=== PATIENT | female | born 1970 | race Caucasian/White ===

== ENCOUNTER 2019-05-26 20:42 | Emergency (ER) | payer OTHER ==
[~2019-05-26] VITALS: Ht 167.6 cm; Wt 111.1 kg
[~2019-05-26 20:42] MED LIST: ACET325 PO; Amitriptyline H25 MG PO; CYCL10 PO; Crutch1 EACH MISC; FLUT110OIA; IBUP800 PO; LEVFLO500 PO; LOSA25 PO; METO25ER PO; PRED20 PO; SUMA25 PO; VENL25 PO; Ventolin Soln3 ML INH
[2019-05-26] MEDS ORDERED: CYCL10 PO (23:31)
[2019-05-26] MEDS ORDERED: LIDO700A20 TOP (23:31)
[2019-05-26] MEDS ORDERED: IBUP600 PO (23:31)
== END 2019-05-27 00:30 | disposition home or self-care (01) ==
LOC: ER 20:42
DX: S16.1XXA Strain of muscle, fascia and tendon at neck level, initial encounter (principal); V43.52XA Car driver injured in collision with other type car in traffic accident, initial encounter; I10 Essential (primary) hypertension; J45.909 Unspecified asthma, uncomplicated; Z79.899 Other long term (current) drug therapy
CPT/HCPCS: 72040; 96372; 99284-25; J1100; J1885; Q0163

== ENCOUNTER → 2022-06-20 | Outpatient (CLI) | payer OTHER ==
[~2022-06-20] MED LIST changes: +IBUP600 PO; +LIDO700A20 TOP
== END | disposition home or self-care (01) ==
LOC: LAB SHORT 16:10
DX: N39.0 Urinary tract infection, site not specified (principal)
CPT/HCPCS: 87086; 87147

== ENCOUNTER 2023-11-01 12:21 | Emergency (ER) | payer OTHER ==
[~2023-11-01] VITALS: Ht 167.6 cm; Wt 108.4 kg
[~2023-11-01 12:21] MED LIST changes: +CEPH500 PO
[2023-11-01 13:07] LABS: BASOPHILS ABSOLUTE AUTO 0.06 K/mm3 (0.00-0.23); BASOPHILS PERCENT AUTO 1 % (0-2); EOSINOPHILS ABSOLUTE AUTO 0.03 K/mm3 (0.00-0.68); EOSINOPHILS PERCENT AUTO 0 % (0-6); Hematocrit 41.3 % (33.0-51.0); Hemoglobin 13.1 g/dL (11.5-16.0); IMMATURE GRAN ABSOLUTE AUTO 0.03 K/mm3 (0.00-0.10); IMMATURE GRAN PERCENT AUTO 0 % (0-1); LYMPHOCYTES ABSOLUTE AUTO 1.62 K/mm3 (0.84-5.20); LYMPHOCYTES PERCENT AUTO 22 % (21-46); MONOCYTES ABSOLUTE AUTO 0.55 K/mm3 (0.16-1.47); MONOCYTES PERCENT AUTO 8 % (4-13); Mean Corpuscular HGB 28.5 pg (26.0-34.0); Mean Corpuscular HGB Conc 31.7 g/dL (31.5-36.5); Mean Corpuscular Volume 90 fL (80-100); Mean Platelet Volume 10.7 fL (9.1-12.4); NEUTROPHILS ABSOLUTE AUTO 5.02 K/mm3 (1.96-9.15); NEUTROPHILS PERCENT AUTO 69 % (41-73); Platelet Count 281 K/mm3 (150-400); White Blood Cell Count 7.31 K/mm3 (4.00-11.30)
[2023-11-01 13:34] LABS: Albumin, Blood 3.9 g/dL (3.4-5.0); Bilirubin, Total 0.4 mg/dL (0.1-1.0); Bun/Creatinine Ratio 29.9 (12.0-20.0); Calcium, Blood 9.1 mg/dL (8.5-10.1); Creatinine, Blood 0.77 mg/dL (0.40-1.00); Globulin, Blood 3.9 g/dL (2.2-4.0); Potassium, Blood 3.8 mmol/L (3.5-5.5); Total Protein, Blood 7.8 g/dL (6.4-8.2)
[2023-11-01] MEDS ORDERED: BUSPIRONE HCL5 M6 PO (15:25)
[2023-11-01] MEDS ORDERED: AMPDEX10 (15:25)
[2023-11-01] MEDS ORDERED: VITAMIN D5000 UNIT PO (15:25)
[2023-11-01] MEDS ORDERED: VENLAFAXINE HC225 MG PO (15:26)
[2023-11-01] MEDS ORDERED: MONT10T (15:26)
[2023-11-01] MEDS ORDERED: ONDA4 PO (17:32)
[2023-11-01 18:09] VITALS: BP 162/63
== END 2023-11-01 18:11 | disposition home or self-care (01) ==
LOC: ER 12:21
PROVIDERS: Student in an Organized Health Care Education/Training Program
DX: R07.89 Other chest pain (principal); K80.20 Calculus of gallbladder without cholecystitis without obstruction; T74.11XA Adult physical abuse, confirmed, initial encounter; I10 Essential (primary) hypertension; J45.909 Unspecified asthma, uncomplicated; F90.9 Attention-deficit hyperactivity disorder, unspecified type; Z79.899 Other long term (current) drug therapy; Z88.5 Allergy status to narcotic agent; Y07.010 Husband, current, perpetrator of maltreatment and neglect
CPT/HCPCS: 71046; 74177; 76705; 80053; 81025; 83690; 84484; 85025; 93005; 93010; 96361; 96374-59; 96375; 99285-25; C9113; J2405; J7030; Q9967